=== PATIENT | female | born 1955 | race Caucasian/White ===

== ENCOUNTER → 2017-09-08 | Outpatient (CLI) | payer MEDICARE, MEDICAID | END | disposition home or self-care (01) | LOC: CFH 09:58 | PROVIDERS: ATTEND Otolaryngology | DX: R13.10 Dysphagia, unspecified (principal); Q90.9 Down syndrome, unspecified | CPT/HCPCS: 74220 ==

== ENCOUNTER 2020-12-22 08:27 | Outpatient (CLI) | payer MEDICARE, MEDICAID | END 2020-12-22 23:59 | disposition home or self-care (01) | LOC: RAD 08:27 | PROVIDERS: ATTEND Internal Medicine | DX: R13.10 Dysphagia, unspecified (principal); Q90.9 Down syndrome, unspecified; E78.5 Hyperlipidemia, unspecified; E03.9 Hypothyroidism, unspecified; K22.8 Other specified diseases of esophagus | CPT/HCPCS: 74220; 74230 ==